=== PATIENT | male | born 1995 | race Native Hawaiian/Other Pacific Islander ===

== ENCOUNTER 2017-06-17 04:08 | Emergency (ER) | payer OTHER ==
[~2017-06-17] VITALS: Ht 180.3 cm; Wt 74.8 kg
[2017-06-17 04:46] VITALS: BP 128/72; TEMP 97.6
== END 2017-06-17 04:52 | disposition home or self-care (01) ==
LOC: ED 04:08
DX: L02.412 Cutaneous abscess of left axilla (principal); L01.00 Impetigo, unspecified
CPT/HCPCS: 99282

== ENCOUNTER 2018-09-22 18:42 | Emergency (ER) | payer OTHER ==
[~2018-09-22] VITALS: Ht 180.3 cm; Wt 78.0 kg
[2018-09-22 21:44] VITALS: BP 108/65; TEMP 98.8
== END 2018-09-22 21:45 | disposition home or self-care (01) ==
LOC: ED 18:42
DX: B34.9 Viral infection, unspecified (principal); R05 Cough; R11.2 Nausea with vomiting, unspecified
CPT/HCPCS: 87502; 87651; 99283

== ENCOUNTER 2020-08-23 23:20 | Emergency (ER) | payer OTHER ==
[~2020-08-23] VITALS: Ht 180.3 cm; Wt 74.8 kg
[2020-08-24 01:05] VITALS: BP 127/82
== END 2020-08-24 01:05 | disposition home or self-care (01) ==
LOC: ED 23:20
PROC: 2W3KX1Z Immobilization of Left Finger using Splint (ICD-10-PCS; principal; 2020-08-23)
PROC: 0HQGXZZ Repair Left Hand Skin, External Approach (ICD-10-PCS; 2020-08-23)
DX: S66.323A Laceration of extensor muscle, fascia and tendon of left middle finger at wrist and hand level, initial encounter (principal); W26.0XXA Contact with knife, initial encounter; Y92.89 Other specified places as the place of occurrence of the external cause
CPT/HCPCS: 99283; J2001

== ENCOUNTER 2021-04-07 20:45 | Emergency (ER) | payer OTHER | END 2021-04-07 22:12 | disposition home or self-care (01) | LOC: ED 20:45 | DX: J02.0 Streptococcal pharyngitis (principal); R13.19 Other dysphagia; F17.210 Nicotine dependence, cigarettes, uncomplicated | CPT/HCPCS: 36415; 86308; 87651; 96372; 99283; J0696; J1885 ==

== ENCOUNTER 2022-04-09 22:34 | Emergency (ER) | payer OTHER ==
[~2022-04-09] VITALS: Ht 180.3 cm; Wt 77.1 kg
[2022-04-09] MEDS ORDERED: 904272561 PO (22:55)
[2022-04-09 23:13] VITALS: BP 154/74; TEMP 98
== END 2022-04-09 23:15 | disposition home or self-care (01) ==
LOC: ED 22:34
DX: S51.812A Laceration without foreign body of left forearm, initial encounter (principal); L03.114 Cellulitis of left upper limb; W26.8XXA Contact with other sharp object(s), not elsewhere classified, initial encounter; Y92.89 Other specified places as the place of occurrence of the external cause
CPT/HCPCS: 99282